=== PATIENT | female | born 1995 | race Caucasian/White ===

== ENCOUNTER 2018-06-09 10:19 | Inpatient (IN) | payer OTHER ==
[2018-06-09] MEDS ORDERED: MISOPROSTOL 200 MCG TAB PR (11:30)
[2018-06-09] MEDS ORDERED: LIDOCAINE 1% (MPF) 30 ML INJ INJ (11:30)
[2018-06-09] MEDS ORDERED: IBUPROFEN 600 MG TAB PO (11:30)
[2018-06-09] MEDS ORDERED: CARBOPROST 250 MCG INJ IM (11:30)
[2018-06-09] MEDS ORDERED: METHYLERGONOVINE 0.2 MG INJ IM (11:30)
[2018-06-09] MEDS ORDERED: OXYTOCIN 30 UNITS/LR 500 ML IV ×2 (11:30)
[2018-06-09] MEDS: ACETAMINOPHEN 325 MG TAB PO ×2 (12:04→17:16)
[2018-06-09] MEDS: AMPICILLIN 2 GM/NS (PMX) 100 ML IVPB (12:05)
[2018-06-09] MEDS: LACTATED RINGER'S 1,000 ML IV* ×3 (12:05→23:45)
[2018-06-09 12:38] LABS: ADD MAN DIFF? NO
[2018-06-09 12:42] LABS: WHITE BLOOD COUNT 6.5 10^3/ul (4.8-10.8)
[2018-06-09 12:42] LABS: ABNORMAL IP MESSAGE 1; BASOPHILS % 0.5 % (0.0-2.0); EOSINOPHILS # 0.1 10^3/ul (0.0-0.5); EOSINOPHILS % 1.5 % (0.0-7.0); HEMATOCRIT 33.9 % (37.0-47.0); LYMPHOCYTES # 0.6 10^3/ul (0.8-2.9); LYMPHOCYTES % 8.6 % (15.0-51.0); MEAN CORPUSCULAR HEMOGLOBIN 28.6 pg (29.0-33.0); MEAN CORPUSCULAR HGB CONC 32.4 g/dl (32.0-37.0); MEAN CORPUSCULAR VOLUME 88.3 fl (82.0-101.0); MONOCYTE # 0.5 10^3/ul (0.3-0.9); MONOCYTES % 6.9 % (0.0-11.0); NEUTROPHIL # 5.3 10^3/ul (1.6-7.5); NEUTROPHILS % 81.6 % (39.0-77.0); PLATELET COUNT 224 10^3/UL (140-415); RED BLOOD COUNT 3.84 10^6/ul (4.20-5.40); RED CELL DISTRIBUTION WIDTH 15.4 % (11.5-14.5)
[2018-06-09 12:44] LABS: POSITIVE DIFF @See below
[2018-06-09 12:56] LABS: INR 0.82; PROTIME 11.4 Sec (11.9-14.9); PT RATIO 0.9
[2018-06-09 12:57] LABS: PARTIAL THROMBOPLASTIN TIME 29.2 Sec (23.0-35.0)
[2018-06-09] MEDS: OXYTOCIN 30 UNITS/LR 500 ML IV (13:23)
[2018-06-09] MEDS: AMPICILLIN 1 GM/NS (PMX) 50 ML IVPB ×2 (16:39→20:47)
[2018-06-09 16:52] LABS: RAPID PLASMA REAGIN NONREACTIVE (NR)
[2018-06-09] MEDS: GUAIFENESIN 20 MG/ML 5ML CUP PO (17:16)
[2018-06-09] MEDS: BUTORPHANOL 2 MG INJ IV (21:14)
[2018-06-09] MEDS ORDERED: NALOXONE (0.4 MG/ML) INJ IV (23:30)
[2018-06-09] MEDS ORDERED: DIPHENHYDRAMINE 50 MG INJ IV (23:30)
[2018-06-09] MEDS ORDERED: ONDANSETRON 4 MG INJ IV (23:30)
[2018-06-10] MEDS: AMPICILLIN 1 GM/NS (PMX) 50 ML IVPB ×3 (00:27→08:38)
[2018-06-10 02:39] LABS: HEPATITIS B SURFACE ANTIGEN NEGATIVE (NEGATIVE)
[2018-06-10] MEDS: LACTATED RINGER'S 1,000 ML IV* (02:42)
[2018-06-10] MEDS: FENTAnyl 2MCG/ML-ROPIV 0.2% 100 ML BAG EPI (08:03)
[2018-06-10] MEDS ORDERED: LIDOCAINE 0.5% (SDV) 50 ML INJ INJ (09:30)
[2018-06-10] MEDS: OXYTOCIN 30 UNITS/LR 500 ML IV ×2 (10:58→12:41)
[2018-06-10] MEDS ORDERED: CARBOPROST 250 MCG INJ IM (11:00)
[2018-06-10] MEDS ORDERED: ONDANSETRON 4 MG INJ IV (11:00)
[2018-06-10] MEDS ORDERED: NACL 0.9% 3 ML SYG IV (11:00)
[2018-06-10] MEDS ORDERED: ZOLPIDEM 5 MG TAB PO (11:00)
[2018-06-10] MEDS ORDERED: ACETAMINOPHEN 325 MG TAB PO (11:00)
[2018-06-10] MEDS ORDERED: MISOPROSTOL 200 MCG TAB PR (11:00)
[2018-06-10] MEDS ORDERED: DIPHENHYDRAMINE 25 MG CAP PO (11:00)
[2018-06-10] MEDS ORDERED: OXYTOCIN 30 UNITS/LR 500 ML IV (11:00)
[2018-06-10] MEDS ORDERED: METHYLERGONOVINE 0.2 MG INJ IM (11:00)
[2018-06-10] MEDS: LANOLIN 7 GM TUBE TOP (12:40)
[2018-06-10] MEDS: WITCH HAZEL/GLYCERIN PAD PR (12:40)
[2018-06-10] MEDS: IBUPROFEN 600 MG TAB PO ×2 (12:40→17:24)
[2018-06-10 12:48] LABS: HEMATOCRIT 34.6 % (37.0-47.0); HEMOGLOBIN 11.1 g/dl (12.0-16.0)
[2018-06-10] MEDS: HYDROCODONE/APAP (5/325) TAB PO ×2 (16:15→20:18)
[2018-06-10] MEDS: SENNA/DOCUSATE NA (8.6MG/50MG) TAB PO (20:18)
[2018-06-11] MEDS: IBUPROFEN 600 MG TAB PO ×4 (00:22→17:39)
[2018-06-11 07:22] LABS: ADD MAN DIFF? NO
[2018-06-11 07:23] LABS: BASOPHILS % 0.4 % (0.0-2.0); EOSINOPHILS # 0.1 10^3/ul (0.0-0.5); EOSINOPHILS % 2.1 % (0.0-7.0); HEMATOCRIT 34.7 % (37.0-47.0); HEMOGLOBIN 11.1 g/dl (12.0-16.0); LYMPHOCYTES # 1.3 10^3/ul (0.8-2.9); LYMPHOCYTES % 27.6 % (15.0-51.0); MEAN CORPUSCULAR HEMOGLOBIN 28.6 pg (29.0-33.0); MEAN CORPUSCULAR VOLUME 89.4 fl (82.0-101.0); MEAN PLATELET VOLUME 11.2 fl (7.4-10.4); MONOCYTE # 0.6 10^3/ul (0.3-0.9); MONOCYTES % 13.5 % (0.0-11.0); NEUTROPHIL # 2.6 10^3/ul (1.6-7.5); NEUTROPHILS % 55.6 % (39.0-77.0); PLATELET COUNT 194 10^3/UL (140-415); RED BLOOD COUNT 3.88 10^6/ul (4.20-5.40); RED CELL DISTRIBUTION WIDTH 15.9 % (11.5-14.5)
[2018-06-11 07:23] LABS: WHITE BLOOD COUNT 4.7 10^3/ul (4.8-10.8)
[2018-06-11] MEDS: SENNA/DOCUSATE NA (8.6MG/50MG) TAB PO ×2 (08:46→21:09)
[2018-06-11] MEDS: GUAIFENESIN/DM 5ML CUP PO ×2 (11:24→16:54)
[2018-06-12] MEDS: IBUPROFEN 600 MG TAB PO ×3 (00:14→12:09)
[2018-06-12] MEDS: GUAIFENESIN/DM 5ML CUP PO (07:52)
[2018-06-12] MEDS: SENNA/DOCUSATE NA (8.6MG/50MG) TAB PO (09:00)
[2018-06-12] MEDS: HYDROCODONE/APAP (5/325) TAB PO (09:45)
[2018-06-12] MEDS: WITCH HAZEL/GLYCERIN PAD PR (12:15)
== END 2018-06-12 17:05 | disposition home or self-care (01) | DRG 807 ==
LOC: OBT 10:19 → L-D 06-10 07:21 → PP1 06-10 12:01 → OBT 10:45 → L-D 10:45
PROVIDERS: Obstetrics & Gynecology
PROC: 10E0XZZ Delivery of Products of Conception, External Approach (ICD-10-PCS; principal; 2018-06-10)
PROC: 0HQ9XZZ Repair Perineum Skin, External Approach (ICD-10-PCS; 2018-06-10)
DX: O36.63X0 Maternal care for excessive fetal growth, third trimester, not applicable or unspecified (principal); Z37.0 Single live birth; O99.824 Streptococcus B carrier state complicating childbirth; O48.0 Post-term pregnancy; O70.0 First degree perineal laceration during delivery; O99.214 Obesity complicating childbirth; E66.9 Obesity, unspecified; Z3A.41 41 weeks gestation of pregnancy; Z68.37 Body mass index [BMI] 37.0-37.9, adult
CPT/HCPCS: 62319; 76815; 85014; 85018; 85025; 85610; 85730; 86592; 86850; 86900; 86901; 87340; 90686

== ENCOUNTER 2018-06-18 09:24 | Emergency (ER) | payer OTHER ==
[2018-06-18] MEDS: RANITIDINE 150 MG TAB PO (11:26)
[2018-06-18] MEDS: ACETAMINOPHEN 325 MG TAB PO (11:26)
[2018-06-18] MEDS: METOCLOPRAMIDE 10 MG TAB PO (11:26)
== END 2018-06-18 12:26 | disposition home or self-care (01) ==
LOC: FTE 09:24
DX: O99.89 Other specified diseases and conditions complicating pregnancy, childbirth and the puerperium (principal); R11.10 Vomiting, unspecified; R19.7 Diarrhea, unspecified
CPT/HCPCS: 99283; Z7502